=== PATIENT | male | born 1970 | race Caucasian/White ===

== ENCOUNTER 2016-11-01 14:14 | Emergency (ER) | payer BC | END 2016-11-01 16:35 | disposition home or self-care (01) | LOC: ER1 14:14 | DX: M51.36 Other intervertebral disc degeneration, lumbar region (principal); I10 Essential (primary) hypertension; F17.290 Nicotine dependence, other tobacco product, uncomplicated | CPT/HCPCS: 72131; 81001; 96372; 99284; J1100; J1885 ==